=== PATIENT | male | born 1980 | race Caucasian/White ===

== ENCOUNTER → 2017-06-22 | Outpatient (CLI) | payer BC | LOC: BMCIMAGING 10:27 | PROVIDERS: ATTEND Internal Medicine | DX: M81.8 Other osteoporosis without current pathological fracture (principal); B20 Human immunodeficiency virus [HIV] disease; Z79.899 Other long term (current) drug therapy ==

== ENCOUNTER → 2018-03-18 | Outpatient (CLI) | payer BC ==
[~2018-03-18] MED LIST: IOPAMIDOL (ISOVUE-300) 100 ML BTL ONE
== END ==
LOC: FIMAGING 10:32
PROVIDERS: ATTEND Colon & Rectal Surgery
DX: N20.0 Calculus of kidney (principal)
CPT/HCPCS: Q9967

== ENCOUNTER → 2018-09-06 | Outpatient (CLI) | payer BC | LOC: FIMAGING 09:07 | PROVIDERS: ATTEND Internal Medicine Endocrinology, Diabetes & Metabolism | DX: M81.0 Age-related osteoporosis without current pathological fracture (principal); M85.80 Other specified disorders of bone density and structure, unspecified site ==